=== PATIENT | female | born 1985 | race Caucasian/White ===

== ENCOUNTER 2017-04-17 21:44 | Emergency (ER) | payer OTHER ==
[2017-04-17 21:58] VITALS: TEMP 98.4
--- NOTE | 2017-04-17 22:41 | EDPHY ---
H & P Stated Complaint: abd pain, hot flashes, dizziness Time Seen by Provider: 04/17/17 22:29 HPI/ROS: Chief Complaint: Abdominal pain HPI: 32-year-old woman with a history of chronic gastroparesis, Kishor-Danlos syndrome and Harmonic dysfunction presenting with increasing abdominal pain this evening. Patient states she ate some [employer] mushrooms for dinner which she has not done in several years. She had the immediate onset cyst of episode of severe cramping abdominal pain similar to her prior gastroparesis. No nausea or vomiting. No diarrhea recent constipation. Pain is a bit better now. At worst is an 8/10, not a 7/10. She is asking for some IV saline is usually helps. She has a history of frequent vomiting for which she takes chronic medical marijuana. ROS: 10 point Review of Systems is negative except as noted in the HPI. PMH: Gastroparesis, Kishor-Danlos syndrome, unspecified autonomic dysfunction Medications: Medical marijuana before and after meals and p.r.n. Allergies: None Social History: Positive smoking, rare alcohol, daily heavy marijuana use Family History: non-contributory Physical Exam: Gen: Awake, Alert, No Distress HEENT: Nose: no rhinorrhea Eyes: PERRLA, EOMI Mouth: Moist mucosa Neck: Supple, no JVD Chest: nontender, lungs clear to auscultation Heart: S1, S2 normal, no murmur Abd: Soft, non-tender, no guarding Back: no CVA tenderness, no midline tenderness Ext: no edema, non-tender Skin: no rash Neuro: CN II-XII intact, Sensation grossly intact, Strength 5/5 in bilateral upper and lower extremities - Personal History LMP (Females 10-55): Hysterectomy Current Tetanus/Diphtheria Vaccine: Yes - Medical/Surgical History Hx Asthma: No Hx Chronic Respiratory Disease: No Hx Diabetes: No Hx Cardiac Disease: Yes Hx Renal Disease: No Hx Cirrhosis: No Hx Alcoholism: No Hx HIV/AIDS: No Hx Splenectomy or Spleen Trauma: No Other PMH: PSHx: foot, tonsilectomy, wisdom tooth extraction, hysterectomy. PMHx: gastroparesis, MVP, hyperadrenergic postural orthostatic tachycardia, kidney stones, Kishor-Danlos syndrome Constitutional: Initial Vital Signs Temperature (C) 36.9 C 04/17/17 21:53 Heart Rate 64 07/15/17 21:53 Respiratory Rate 16 04/17/17 21:53 Blood Pressure 94/66 L 04/17/17 21:53 O2 Sat (%) 100 04/17/17 21:53 O2 Delivery Mode Room Air Allergies/Adverse Reactions: No Known Allergies Allergy (Unverified 04/17/17 21:53) Home Medications: Medication Instructions Recorded NK [No Known Home Meds] 04/17/17 Medical Decision Making ED Course/Re-evaluation: 2305 patient is feeling significantly improved after 600 mL of IV normal saline. I am still awaiting her blood results. Will order complete her L and reassess. Abdomen is soft and benign. Patient blood work is unremarkable. She is feeling improved after IV saline only. Will discharge with follow up with her primary care physician as an outpatient and instructions return for worsening. - Data Points Laboratory Results: Laboratory Results 04/17/17 22:48 04/17/17 22:48 04/17/17 04/17/17 22:48 22:48 WBC 9.62 10^3/uL H 10^3/uL (3.80-9.50) RBC 4.60 10^6/uL 10^6/uL (4.18-5.33) Hgb 14.0 g/dL g/dL (12.6-16.3) Hct 41.0 % % (38.0-47.0) MCV 89.1 fL fL (81.5-99.8) MCH 30.4 pg pg (27.9-34.1) MCHC 34.1 g/dL g/dL (32.4-36.7) RDW 13.4 % % (11.5-15.2) Plt Count 275 10^3/uL 10^3/uL (150-400) MPV 12.5 fL H fL (8.7-11.7) Neut % (Auto) 54.4 % % (39.3-74.2) Lymph % (Auto) 35.7 % % (15.0-45.0) [place] % (Auto) 7.7 % % (4.5-13.0) Eos % (Auto) 1.6 % % (0.6-7.6) Baso % (Auto) 0.3 % % (0.3-1.7) Nucleat RBC Rel Count 0.0 % % (0.0-0.2) Absolute Neuts (auto) 5.24 10^3/uL 10^3/uL (1.70-6.50) Absolute Lymphs (auto) 3.43 10^3/uL H 10^3/uL (1.00-3.00) Absolute Monos (auto) 0.74 10^3/uL 10^3/uL (0.30-0.80) Absolute Eos (auto) 0.15 10^3/uL 10^3/uL (0.03-0.40) Absolute Basos (auto) 0.03 10^3/uL 10^3/uL (0.02-0.10) Absolute Nucleated RBC 0.00 10^3/uL 10^3/uL (0-0.01) Immature Gran % 0.3 % % (0.0-1.1) Immature Gran # 0.03 10^3/uL 10^3/uL (0.00-0.10) Sodium 141 mEq/L mEq/L (134-144) Potassium 3.6 mEq/L mEq/L (3.5-5.2) Chloride 107 mEq/L mEq/L (97-110) Carbon Dioxide 23 mEq/l mEq/l (22-31) Anion Gap 11 mEq/L mEq/L (8-16) BUN 9 mg/dL mg/dL (7-23) Creatinine 0.7 mg/dL mg/dL (0.6-1.0) Estimated GFR > 60 Glucose 64 mg/dL L mg/dL (70-100) Calcium 10.0 mg/dL mg/dL (8.5-10.4) Total Bilirubin 0.3 mg/dL mg/dL (0.1-1.4) Conjugated Bilirubin 0.2 mg/dL mg/dL (0.0-0.5) Unconjugated Bilirubin 0.1 mg/dL mg/dL (0.0-1.1) AST 20 IU/L IU/L (14-46) ALT 24 IU/L IU/L (9-52) Alkaline Phosphatase 37 IU/L L IU/L (38-126) Total Protein 7.5 g/dL g/dL (6.3-8.2) Albumin 4.3 g/dL g/dL (3.5-5.0) Lipase 208.0 IU/L IU/L (23-300) Medications Given: Discontinued Medications Sodium Chloride (Ns) 1,000 mls @ 0 mls/hr IV ONCE ONE; Wide Open PRN Reason: Protocol Stop: 04/17/17 22:51 Last Admin: 04/17/17 22:50 Dose: 1,000 mls Departure - Departure Disposition: Home, Routine, Self-Care Clinical Impression: Abdominal pain Condition: Good Instructions: Abdominal Pain (ED) Additional Instructions: Make sure to continue drinking plenty of fluids. Follow up with primary care doctor in 2-3 days for re-evaluation. Return to the emergency depart for increasing abdominal pain, nausea, vomiting, fevers, chills, or any other concerns. Referrals: Pranay Santos MD [Medical Doctor] - As per Instructions
[2017-04-17] MEDS ORDERED: NS 1,000 ML IV ONE (22:50)
[2017-04-17 23:21] LABS: % IMMATURE GRANULYOCYTES 0.3 % (0.0-1.1); ABSOLUTE IMMATURE GRANULOCYTES 0.03 10^3/uL (0.00-0.10); ADD DIFF? NO; ADD MORPH? NO; ADD SCAN? NO; ATYPICAL LYMPHOCYTE FLAG 10 (0-99); FRAGMENT RBC FLAG 0 (0-99); LEFT SHIFT FLG 0 (0-99); LIPEMIA HEMOLYSIS FLAG 90 (0-99); MEAN CELL HEMOGLOBIN 30.4 pg (27.9-34.1); MEAN CELL HEMOGLOBIN CONCENTR. 34.1 g/dL (32.4-36.7); MEAN CELL VOLUME 89.1 fL (81.5-99.8); MEAN PLATELET VOLUME 12.5 fL (8.7-11.7); PLATELET CLUMPS FLAG 0 (0-99); PLATELET COUNT 275 10^3/uL (150-400); RED CELL DISTRIBUTION WIDTH 13.4 % (11.5-15.2)
[2017-04-17 23:27] LABS: ALANINE AMINOTRANSFERASE 24 IU/L (9-52); ALBUMIN 4.3 g/dL (3.5-5.0); ALKALINE PHOSPHATASE 37 IU/L (38-126); ANION GAP 11 mEq/L (8-16); ASPARTATE AMINOTRANSFERASE 20 IU/L (14-46); BILIRUBIN,TOTAL 0.3 mg/dL (0.1-1.4); BILIRUBIN-CONJUGATED 0.2 mg/dL (0.0-0.5); BILIRUBIN-UNCONJUGATED 0.1 mg/dL (0.0-1.1); CARBON DIOXIDE 23 mEq/l (22-31); CHLORIDE 107 mEq/L (97-110); CREATININE 0.7 mg/dL (0.6-1.0); GLOMERULAR FILTRATION RATE > 60; GLUCOSE 64 mg/dL (70-100); POTASSIUM 3.6 mEq/L (3.5-5.2); SODIUM 141 mEq/L (134-144); TOTAL PROTEIN 7.5 g/dL (6.3-8.2)
[2017-04-17 23:45] VITALS: BP 98/60; PULSE 73; RESP 14; O2SAT 98
== END 2017-04-17 23:45 | disposition home or self-care (01) ==
DX: R10.9 Unspecified abdominal pain (principal); F17.200 Nicotine dependence, unspecified, uncomplicated; E86.9 Volume depletion, unspecified; Z90.710 Acquired absence of both cervix and uterus